=== PATIENT | male | born 1955 | race Caucasian/White ===

== ENCOUNTER 2016-08-25 09:26 | Inpatient (IN) | payer OTHER ==
[~2016-08-25] VITALS: Ht 168.9 cm; Wt 91.4 kg
[~2016-08-25 09:26] MED LIST: ADDERALL XR 2020 MG PO; ADVIL,NUPRIN,M200 MG PO; ALTACE10 MG PO; ASPIR-LOW81 MG PO; ASPIRIN325 MG PO; ATORVASTATIN CA80 MG PO; CLOPIDOGREL75 MG PO; CORMAX50 M1 TP; HYDROCORTISONE30 G2 TP; LOPRESSOR25 MG PO; PRAVACHOL40 MG PO; TEMOVATE 0.05%30 GM TP; TYLENOL EXTRA500 MG PO
[2016-08-25 10:00] LABS: HEMATOCRIT 33.1 % (38.0-50.0); MCH 29.7 PG (29.0-34.0); MCHC 32.9 G/DL (30.0-36.0); MCV 90.2 FL (86-99); MEAN PLAT.VOLUME 10.3 uM^3 (9.0-12.4); PLATELET COUNT 325 K/uL (156-360); RBC DIS.WIDTH-SD 46.2 % (39-53); RED BLOOD COUNT 3.67 M/uL (4.00-5.50); WHITE BLOOD COUNT 14.1 K/uL (4.1-10.2)
[2016-08-25 10:11] LABS: CHLORIDE 100 mEq/L (99-109); POTASSIUM 4.1 mEq/L (3.7-5.4); SODIUM 134 mEq/L (136-147)
[2016-08-25 10:13] LABS: GLUCOSE 121 mg/dL (70-99)
[2016-08-25 10:14] LABS: ANION GAP 10 MEQ/L (2-14)
[2016-08-25 10:17] LABS: GFR ESTIMATE (CALCULATED) 55 mL/min/
[2016-08-25 10:18] LABS: UREA NITROGEN (BUN) 27 mg/dL (9-23)
[2016-08-25 11:51] LABS: TROP-I INTERPRETATION NEGATIVE; TROPONIN-I < 0.01 ng/mL (0.0-0.30)
[2016-08-25] MEDS ORDERED: ASPIR-LOW81 MG PO (12:44)
[2016-08-25] MEDS ORDERED: TYLENOL EXTRA500 MG PO (12:44)
[2016-08-25] MEDS ORDERED: ATORVASTATIN CA80 MG PO (12:45)
[2016-08-25] MEDS ORDERED: PLAVIX75 MG PO (12:45)
[2016-08-25] MEDS ORDERED: METOPROLOL SUCC25 MG PO (12:46)
[2016-08-25] MEDS ORDERED: BUPROPION HCL150 M2 PO (12:47)
[2016-08-25] MEDS ORDERED: AMOXICILLIN875 MG PO (12:47)
[2016-08-25] MEDS ORDERED: HYDROCORTISONE30 G2 TP (12:49)
[2016-08-25 13:21] LABS: BILIRUBIN NEGATIVE; BLOOD NEGATIVE; COLOR YELLOW ((YELLOW)); GLUCOSE (STRIP) NEGATIVE; KETONES NEGATIVE; LEUKOCYTES NEGATIVE; NITRITE NEGATIVE; PROTEIN (STRIP) 30; SPECIFIC GRAVITY 1.015 (1.000-1.030); UROBILINOGEN 0.2 MG/DL (0.2-1.0)
[2016-08-25 13:23] LABS: ADD MIUA? NO
[2016-08-25 13:47] VITALS: BP 176/72
[2016-08-25 15:23] LABS: UR CREATININE CONCENTRATION 177.3 MG/DL
[2016-08-25 15:45] VITALS: BP 133/69
[2016-08-25 18:16] LABS: HEMATOCRIT 28.3 % (38.0-50.0); MCV 91.6 FL (86-99)
[2016-08-25 19:30] VITALS: BP 110/58
[2016-08-26] VITALS (9 sets, daily range): BP systolic 100–155; BP diastolic 56–72
[2016-08-26 05:19] LABS: BASOPHIL COUNT 0.1 K/uL (0-0.1); EOSINOPHIL (%) 2.2 % (0-5); EOSINOPHIL COUNT 0.2 K/uL (0-0.3); HEMATOCRIT 26.9 % (38.0-50.0); IMMATURE GRANULOCYTE (%) 0.4 % (0.0-0.7); INSTRUMENT ABS NEUTROPHIL CT 4.2 K/uL; LYMPHOCYTE COUNT 2.8 K/uL (1.0-2.8); MCH 29.4 PG (29.0-34.0); MCV 91.8 FL (86-99); MEAN PLAT.VOLUME 10.2 uM^3 (9.0-12.4); MONOCYTE (%) 7.7 % (3-12); MONOCYTE COUNT 0.6 K/uL (0-0.8); NEUTROPHIL (%) 53.2 % (45-76); NEUTROPHIL COUNT 4.2 K/uL (1.8-6.4); PLATELET COUNT 232 K/uL (156-360); RBC DIS.WIDTH-CV 14.4 % (11.8-14.6); RBC DIS.WIDTH-SD 48.6 % (39-53); WHITE BLOOD COUNT 7.8 K/uL (4.1-10.2)
[2016-08-26 05:46] LABS: ANION GAP 8 MEQ/L (2-14); CHLORIDE 110 MEQ/L (99-109); GLUCOSE 91 mg/dL (70-99); POTASSIUM 4.1 MEQ/L (3.7-5.4); SAMPLE HEMOLYSIS CHECK 0; SAMPLE ICTERIC CHECK 0; SAMPLE LIPEMIA CHECK 0; UREA NITROGEN (BUN) 15 mg/dL (9-23)
[2016-08-26 05:51] LABS: GFR ESTIMATE (CALCULATED) > 59 mL/min/; SODIUM 141 MEQ/L (136-147)
[2016-08-26 07:01] LABS: RED BLOOD COUNT 2.93 M/uL (4.00-5.50)
[2016-08-26 13:56] LABS: POC NON-PRINT COM 1 ND
[2016-08-26 16:08] LABS: HEMATOCRIT 26.7 % (38.0-50.0); MCV 92.7 FL (86-99)
[2016-08-27] VITALS (7 sets, daily range): BP systolic 119–183; BP diastolic 58–80
[2016-08-27 06:39] LABS: ANION GAP 8 MEQ/L (2-14); CHLORIDE 109 MEQ/L (99-109); GFR ESTIMATE (CALCULATED) > 59 mL/min/; GLUCOSE 94 mg/dL (70-99); POTASSIUM 4.5 MEQ/L (3.7-5.4); SAMPLE HEMOLYSIS CHECK 2; SAMPLE ICTERIC CHECK 0; SAMPLE LIPEMIA CHECK 0; SODIUM 144 MEQ/L (136-147); UREA NITROGEN (BUN) 9 mg/dL (9-23)
[2016-08-27 07:26] LABS: HEMATOCRIT 32.5 % (38.0-50.0); MCH 29.3 PG (29.0-34.0); MCHC 33.2 G/DL (30.0-36.0); MEAN PLAT.VOLUME 10.3 uM^3 (9.0-12.4); PLATELET COUNT 244 K/uL (156-360); RBC DIS.WIDTH-CV 14.9 % (11.8-14.6); RBC DIS.WIDTH-SD 48.2 % (39-53); WHITE BLOOD COUNT 8.8 K/uL (4.1-10.2)
[2016-08-27 07:30] LABS: MCV 88.3 FL (86-99); RED BLOOD COUNT 3.68 M/uL (4.00-5.50)
[2016-08-28 00:36] VITALS: BP 145/67
[2016-08-28 04:37] VITALS: BP 144/71
[2016-08-28 05:34] LABS: HEMATOCRIT 31.6 % (38.0-50.0); MCH 29.8 PG (29.0-34.0); MCHC 33.5 G/DL (30.0-36.0); MCV 88.8 FL (86-99); MEAN PLAT.VOLUME 10.7 uM^3 (9.0-12.4); PLATELET COUNT 247 K/uL (156-360); RBC DIS.WIDTH-CV 14.7 % (11.8-14.6); RBC DIS.WIDTH-SD 47.9 % (39-53); RED BLOOD COUNT 3.56 M/uL (4.00-5.50); WHITE BLOOD COUNT 9.7 K/uL (4.1-10.2)
[2016-08-28 08:15] VITALS: BP 176/80
[2016-08-28] MEDS ORDERED: CEFTIN500 MG PO (10:23)
[2016-08-28] MEDS ORDERED: PROTONIX40 MG PO (10:41)
[2016-08-28 11:25] VITALS: BP 152/72
== END 2016-08-28 15:11 | disposition home or self-care (01) | DRG 378 ==
LOC: EME 09:26 → EDOF 12:15 → 5WEST 12:15 → EDOF 12:32 → 5WEST 13:30
PROVIDERS: Internal Medicine; Internal Medicine Gastroenterology
PROC: 0DB68ZX Excision of Stomach, Via Natural or Artificial Opening Endoscopic, Diagnostic (ICD-10-PCS; principal; 2016-08-25)
PROC: 30233N1 Transfusion of Nonautologous Red Blood Cells into Peripheral Vein, Percutaneous Approach (ICD-10-PCS; 2016-08-26)
PROC: 0DBP8ZX Excision of Rectum, Via Natural or Artificial Opening Endoscopic, Diagnostic (ICD-10-PCS; 2016-08-27)
DX: K92.1 Melena (principal); D62 Acute posthemorrhagic anemia; N17.9 Acute kidney failure, unspecified; K25.9 Gastric ulcer, unspecified as acute or chronic, without hemorrhage or perforation; K29.70 Gastritis, unspecified, without bleeding; K62.1 Rectal polyp; K64.8 Other hemorrhoids; R19.7 Diarrhea, unspecified; I10 Essential (primary) hypertension; I25.10 Atherosclerotic heart disease of native coronary artery without angina pectoris; E78.5 Hyperlipidemia, unspecified; E11.9 Type 2 diabetes mellitus without complications; E66.9 Obesity, unspecified; M25.562 Pain in left knee; L40.9 Psoriasis, unspecified; Z79.02 Long term (current) use of antithrombotics/antiplatelets; Z79.82 Long term (current) use of aspirin; I25.2 Old myocardial infarction; Z95.5 Presence of coronary angioplasty implant and graft; Z68.32 Body mass index [BMI] 32.0-32.9, adult; Z80.0 Family history of malignant neoplasm of digestive organs
CPT/HCPCS: 74176; 80048; 80069; 81003; 82272; 82570; 83630; 84300; 84484; 85014; 85018; 85025; 85027; 86900; 86901; 86920; 87077; 87086; 87186; 87493; 87506; 88305; 88342 TC; 93005; 99281; 99285; C9113; G0378; J1200; J1940; J2250; J2765; J7030; P9016